=== PATIENT | female | born 1955 | race Caucasian/White ===

== ENCOUNTER 2021-10-03 09:01 | Inpatient (IN) | payer MEDICARE ==
[~2021-10-03] VITALS: Ht 152.4 cm; Wt 44.6 kg
[~2021-10-03 09:01] MED LIST: ASPIRIN 81M81 MG/TA2 PO; MULTI VITAMINS1 TAB PO; NORCO 325 MG-51 TAB PO; OYSCO 500500 M1; TOPROL XL 25MG25 MG PO
--- NOTE | 2021-10-03 11:30 | NUR ---
Pt arrived from [facility] via EM. Pt is very frail and quiet. Reports no pain complaints at this time. Pt is very sleepy, answers most of the questions I ask. Reports no home medications other than occasional tylenol for back pain. All questions answered and pt oriented to her room
[2021-10-03 12:23] VITALS: BP 110/54; PULSE 84; TEMP 98
[2021-10-03 12:59] LABS: BASO % 0.2 % (0.0-2.0); EOS % 0.2 % (0-4.0); GRAN # 5.3 K/mm3 (1.4-6.5); GRAN % 65.4 % (42.2-75.2); LYMPH # 2.2 K/mm3 (1.2-3.4); LYMPH % 26.9 % (20.0-51.0); MEAN CELL VOLUME 97 fl (80.0-100.0); MEAN CORPUSCULAR HEMOGLOBIN 35 pg (27.0-31.0); MEAN CORPUSCULAR HGB CONC 36 g/dl (33.0-37.0); MEAN PLATELET VOLUME 9.1 fl (7.4-10.4); MONO # 0.6 K/mm3 (0.1-0.6); MONO % 7.1 % (1.7-9.3); PLATELET COUNT 281 K/mm3 (130-400); RED BLOOD COUNT 3.16 M/mm3 (4.10-5.30); REDCELL DISTRIBUTION WIDTH-CV 12.8 % (11.5-14.5)
[2021-10-03 13:07] LABS: HEMATOCRIT 30.7 % (37.0-47.0)
[2021-10-03 13:10] LABS: CALCIUM 8.1 mg/dL (8.4-10.2); CREATININE, serum 0.55 mg/dL (0.57-1.11); POTASSIUM 3.7 mmol/L (3.5-4.5)
[2021-10-03 15:43] VITALS: BP 125/63; PULSE 92; TEMP 97.8
--- NOTE | 2021-10-03 17:11 | NUR ---
Pt has been resting most of the day. She does have a productive cough. No pain complaints. Notified Dr Hernandez of no diet order, received order for clear liquids. Cardiology has seen, GI in room now.
[2021-10-03 17:26] VITALS: BP 139/81; PULSE 95
[2021-10-03 19:54] VITALS: BP 122/63; PULSE 94; TEMP 98
--- NOTE | 2021-10-03 23:30 | NUR ---
ASSESSMENT COMPLETE. PT NAPPING IN BED. PT COMPLAINED OF BEING COLD. PT GIVEN WARM BLANKET. PT DENIES PAIN, PALPITATIONS, OR DIZZINESS. LATER IN THE SHIFT PT COMPLAINED OF SOB. PT'S O2 STATS AT 95%. PT FOUND TO HAVE SOME CRACKLES IN HER LOWER LOBES. PT GIVEN LASIX AND BREATHING TREATMENTS PER ORDERS. PT STATES SHE HAS NO OTHER NEEDS AT THIS TIME. CALL LIGHT WITHIN REACH.
[2021-10-04] VITALS (16 sets, daily range): BP systolic 104–178; BP diastolic 58–86; PULSE 63–121; TEMP 97.4–98.1
--- NOTE | 2021-10-04 07:00 | NUR ---
Report received from Carissa Purvis. Pt in bed restng with eyes closed, will continue to monitor.
[2021-10-04 07:15] LABS: ALBUMIN 2.6 gm/dL (3.4-4.8); CALCIUM 8.2 mg/dL (8.4-10.2); CREATININE, serum 0.52 mg/dL (0.57-1.11); MAGNESIUM 1.2 mg/dL (1.6-2.6); PHOSPHOROUS 3.5 mg/dL (2.3-4.7); POTASSIUM 3.6 mmol/L (3.5-4.5)
[2021-10-04 07:21] LABS: BASO # 0.1 K/mm3 (0.0-0.2); BASO % 0.7 % (0.0-2.0); EOS # 0.1 K/mm3 (0.0-0.7); EOS % 0.9 % (0.0-4.0); GRAN # 4.1 K/mm3 (1.4-6.5); GRAN % 61.3 % (42.2-75.2); HEMOGLOBIN 10.4 g/dl (12.5-16.0); MEAN CELL VOLUME 98 fl (80.0-100.0); MEAN CORPUSCULAR HEMOGLOBIN 36 pg (27-31); MEAN CORPUSCULAR HGB CONC 36 g/dl (33.0-37.0); MEAN PLATELET VOLUME 9.9 fl (7.4-10.4); MONO # 0.5 K/mm3 (0.1-0.6); RED BLOOD COUNT 2.93 M/mm3 (4.10-5.30); REDCELL DISTRIBUTION WIDTH-CV 12.6 % (11.5-14.5)
[2021-10-04 07:22] LABS: HEMATOCRIT 28.6 % (37.0-47.0); PLATELET COUNT 135 K/mm3 (130-400)
--- NOTE | 2021-10-04 08:30 | NUR ---
Assessment charted. Pt in bed resting, states she feels like can't breath, turned 02 up to 2L NC and sats are 96%, states she has heaviness on chest, able to get pt down for lexiscan this am. Laying on side and tripod breathing, very small and skinny, denies pain, IVF started to IV tin RFA. INT to LFA. Will ocntinue to monitor.
--- NOTE | 2021-10-04 11:34 | NUR ---
fat pressroom worker met with patient to discuss discharge plan. Patient reports that she lives at home with her Harjinder ([phone]) in [facility]. Patient reports that she is fully independent with his activities of daily living and does not utilize any DME to assist with mobility. Patient reports to not having oxygen established at home and does not use a nebulizer. PCP is Dr. Shah and she utilizes [facility] for medications with no cost difficulty. Patient reports that she does not havea DPOA-HC established at this time and verbalizes that she is not interested in creating one. Education provided to both the patient and her that legally decision making would fall to Harjinder and then go down the blood line. Patient and verbalize there understanding and is ok with this. Attended rounds with the physician team. Plan is to start the patient on breathing treatments, establish a glass carrier and do a ExOx to establish home oxygen. Went through treatment plan with the patient who verbalizes her understanding of the plan. Discharge plan: Home
[2021-10-04 11:51] LABS: ARTERIAL BLD GAS O2 SATURATION 96.2 % (92-100); ARTERIAL BLOOD GAS BASE EXCESS 4.3 (-2-2); ARTERIAL BLOOD GAS HCO3 27.9 meq/L (22-26); ARTERIAL BLOOD GAS PO2 77.2 mmHg (80-100); ARTERIAL BLOOD GAS pH 7.48 (7.35-7.45)
--- NOTE | 2021-10-04 12:48 | NUR ---
Upon entry in the room pts family member states she was short of breath because they went to the bathroom. Pt idd not use commode no urine captured but states she had liquid black stool in toilet. Will give report to Mayi who will resume care.
--- NOTE | 2021-10-04 15:06 | NUR ---
Initial visit; Patient thanked Glue Machine Operator for looking in on her and offering God's blessings and for Glue Machine Operator to keep her in her prayers.
--- NOTE | 2021-10-04 18:12 | NUR ---
Pt had not urinated this afternoon, offered to take patient to the bathroom several times but she declined stating she did not have to go. SENIOR GROUP MANAGER went in to bladder scan patient and patient urinated in her brief. Pt continues to have anxious spells where she feels SOB and is unable to calm herself down, PRN Xanax administered. Pt updated with the POC, verbalizes understanding. No needs at this time. Call light within reach.
--- NOTE | 2021-10-04 22:29 | NUR ---
patient lethargic, will not drink bowel prep for scheduled colonoscopy in am, call placed to Nneka Fish to notify. See new orders.
[2021-10-04 22:43] LABS: ARTERIAL BLD GAS O2 SATURATION 88.4 % (92-100); ARTERIAL BLD GAS TCO2 CT 26.8; ARTERIAL BLOOD GAS HCO3 25.6 meq/L (22-26); ARTERIAL BLOOD GAS PCO2 40.8 mmHg (35-45); ARTERIAL BLOOD GAS PO2 56.7 mmHg (80-100); ARTERIAL BLOOD GAS pH 7.42 (7.35-7.45)
[2021-10-05 00:42] VITALS: BP 114/55; PULSE 77; TEMP 98
[2021-10-05 04:08] VITALS: BP 108/57; PULSE 68; TEMP 97.6
--- NOTE | 2021-10-05 05:02 | NUR ---
Patient completed bowel prep at 1am, had 2 incontent bowel movements of watery brown stool, updated on plan of care, denies pain, lethargy noted, patient states she hasn't eaten in 4 days and is hungry, NPO status maintained, assisted with pericare and bed change. Colonoscopy scheduled today.
[2021-10-05 06:22] LABS: BASO % 0.1 % (0.0-2.0); GRAN # 5.5 K/mm3 (1.4-6.5); GRAN % 81.3 % (42.2-75.2); HEMOGLOBIN 10.5 g/dl (12.5-16.0); LYMPH # 0.9 K/mm3 (1.2-3.4); LYMPH % 13.4 % (20.0-51.0); MEAN CELL VOLUME 97 fl (80.0-100.0); MEAN CORPUSCULAR HEMOGLOBIN 35 pg (27-31); MEAN CORPUSCULAR HGB CONC 36 g/dl (33.0-37.0); MEAN PLATELET VOLUME 9.5 fl (7.4-10.4); MONO # 0.3 K/mm3 (0.1-0.6); MONO % 4.8 % (1.7-9.3); RED BLOOD COUNT 2.97 M/mm3 (4.10-5.30); REDCELL DISTRIBUTION WIDTH-CV 12.6 % (11.5-14.5)
[2021-10-05 06:30] LABS: HEMATOCRIT 28.9 % (37.0-47.0); PLATELET COUNT 292 K/mm3 (130-400)
[2021-10-05 06:39] LABS: ALBUMIN 2.6 gm/dL (3.4-4.8); BILIRUBIN,TOTAL 0.5 mg/dL (0.2-1.2); CALCIUM 8.8 mg/dL (8.4-10.2); CREATININE, serum 0.69 mg/dL (0.57-1.11); POTASSIUM 4.1 mmol/L (3.5-4.5); TOTAL PROTEIN 6.2 gm/dL (6.2-8.1)
[2021-10-05 07:47] VITALS: BP 116/60; PULSE 89; TEMP 97.5
[2021-10-05] MEDS ORDERED: PROTONIX 40MG T40 MG PO (11:18)
[2021-10-05] MEDS ORDERED: CARDIZEM CD 12120 MG PO (11:19)
[2021-10-05] MEDS ORDERED: MULTAQ400 MG PO (11:19)
[2021-10-05] MEDS ORDERED: PROAIR HFA0.09 MG/AC IH (11:19)
[2021-10-05] MEDS ORDERED: MEDROL 4MG DOSPA4 MG PO (11:19)
[2021-10-05 11:20] VITALS: BP 107/57; PULSE 75; TEMP 98.2
[2021-10-05] MEDS ORDERED: NICODERM C21 MG/PATC TD (11:21)
--- NOTE | 2021-10-05 14:17 | NUR ---
Spoke with the patient about going home on oxygen and seeing what company she would like to be established with. Patient verbalizes that she would like to be set up with [facility]. Order signed and faxed to [facility]. Attempted to contact the patient's ,however the phone number on file is not in working order.
[2021-10-05 15:06] VITALS: BP 144/77; PULSE 87; TEMP 97.6
[2021-10-05] MEDS ORDERED: ELIQUIS 5MG PO (15:29)
--- NOTE | 2021-10-05 16:08 | NUR ---
Unable to reach the patient's until he came up to the hospital post procedure. Education the that he would need to go down to [facility] to pick the patient's oxygen up and bring a tank up to the hospital for their ride home. Time at [facility] notified that the patient's was on his way there.
--- NOTE | 2021-10-05 17:00 | NUR ---
Discharge paperwork and instructions reviewed with patient and at this time. All questions answered at this time. Bilateral FA IV's dc'd catheter tips intact. Pt wheeled out of facility by a staff member at this time.
[2021-10-09] MEDS ORDERED: COUMADIN 22.5 MG/TAB PO (21:07)
== END 2021-10-05 17:00 | disposition home or self-care (01) | DRG 377 ==
LOC: MEDICAL 09:01
PROVIDERS: Internal Medicine Gastroenterology; Nurse Practitioner Family; Physician Assistant; ADMIT Internal Medicine
PROC: 0DB98ZX Excision of Duodenum, Via Natural or Artificial Opening Endoscopic, Diagnostic (ICD-10-PCS; 2021-10-04)
PROC: 0DB78ZX Excision of Stomach, Pylorus, Via Natural or Artificial Opening Endoscopic, Diagnostic (ICD-10-PCS; 2021-10-04)
PROC: 0DJD8ZZ Inspection of Lower Intestinal Tract, Via Natural or Artificial Opening Endoscopic (ICD-10-PCS; principal; 2021-10-05 14:30)
DX: K25.4 Chronic or unspecified gastric ulcer with hemorrhage (principal); I21.4 Non-ST elevation (NSTEMI) myocardial infarction; J96.01 Acute respiratory failure with hypoxia; E43 Unspecified severe protein-calorie malnutrition; D62 Acute posthemorrhagic anemia; E87.1 Hypo-osmolality and hyponatremia; J90 Pleural effusion, not elsewhere classified; J98.11 Atelectasis; D68.32 Hemorrhagic disorder due to extrinsic circulating anticoagulants; Z68.1 Body mass index [BMI] 19.9 or less, adult; K29.71 Gastritis, unspecified, with bleeding; K92.1 Melena; F17.210 Nicotine dependence, cigarettes, uncomplicated; I48.0 Paroxysmal atrial fibrillation; I25.10 Atherosclerotic heart disease of native coronary artery without angina pectoris; K29.80 Duodenitis without bleeding; J43.9 Emphysema, unspecified; T45.515A Adverse effect of anticoagulants, initial encounter; I34.0 Nonrheumatic mitral (valve) insufficiency; E83.42 Hypomagnesemia; K64.2 Third degree hemorrhoids; K44.9 Diaphragmatic hernia without obstruction or gangrene
CPT/HCPCS: 99223-AI; 99233-AI; 99239; A9500; C9113; J1940; J2405; J2704; J2765; J2785; J3475; J7030; J7512; Q9967

== ENCOUNTER 2021-10-22 16:10 | Emergency (ER) | payer MEDICARE ==
[~2021-10-22] VITALS: Ht 152.4 cm; Wt 38.2 kg
[~2021-10-22 16:10] MED LIST changes: +CARDIZEM CD 12120 MG PO; +COUMADIN 22.5 MG/TAB PO; +ELIQUIS 5MG PO; +LASIX 40MG TABL40 MG PO; +MEDROL 4MG DOSPA4 MG PO; +MULTAQ400 MG PO; +NICODERM C21 MG/PATC TD; +OMNICEF 300MG300 MG PO; +OXYGEN; +PREDNISONE20 MG PO; +PRINIVIL2.5 MG PO; +PROAIR HFA0.09 MG/AC IH; +PROTONIX 40MG T40 MG PO
[2021-10-22 16:15] VITALS: TEMP 98
[2021-10-22 17:02] LABS: BASO # 0.1 K/mm3 (0.0-0.2); BASO % 0.4 % (0.0-2.0); EOS # 0.2 K/mm3 (0.0-0.7); EOS % 1.6 % (0.0-4.0); GRAN # 11.7 K/mm3 (1.4-6.5); GRAN % 87.2 % (42.2-75.2); HEMOGLOBIN 11.2 g/dl (12.5-16.0); LYMPH # 0.8 K/mm3 (1.2-3.4); LYMPH % 6.1 % (20.0-51.0); MEAN CELL VOLUME 98 fl (80.0-100.0); MEAN CORPUSCULAR HEMOGLOBIN 35 pg (27-31); MEAN CORPUSCULAR HGB CONC 36 g/dl (33.0-37.0); MEAN PLATELET VOLUME 8.8 fl (7.4-10.4); MONO # 0.6 K/mm3 (0.1-0.6); MONO % 4.2 % (1.7-9.3); PLATELET COUNT 304 K/mm3 (130-400); RED BLOOD COUNT 3.16 M/mm3 (4.10-5.30); REDCELL DISTRIBUTION WIDTH-CV 13.2 % (11.5-14.5)
[2021-10-22 17:03] LABS: HEMATOCRIT 30.9 % (37.0-47.0)
[2021-10-22 17:20] LABS: BILIRUBIN,TOTAL 0.9 mg/dL (0.2-1.2); CALCIUM 8.1 mg/dL (8.4-10.2); CREATININE, serum 0.64 mg/dL (0.57-1.11); POTASSIUM 3.2 mmol/L (3.5-4.5); TOTAL PROTEIN 5.8 gm/dL (6.2-8.1)
[2021-10-22 17:39] LABS: TROPONIN-I 0.055 ng/mL (0.00-0.033)
[2021-10-22] MEDS ORDERED: PREDNISONE20 MG PO (17:54)
[2021-10-22 18:30] VITALS: BP 124/66; PULSE 92
== END 2021-10-22 18:40 | disposition home or self-care (01) ==
LOC: COL.ER 16:10
PROVIDERS: Emergency Medicine
DX: J44.1 Chronic obstructive pulmonary disease with (acute) exacerbation (principal); I48.91 Unspecified atrial fibrillation; I25.2 Old myocardial infarction; I50.9 Heart failure, unspecified; Z79.899 Other long term (current) drug therapy; Z79.01 Long term (current) use of anticoagulants; Z79.52 Long term (current) use of systemic steroids; Z99.81 Dependence on supplemental oxygen; Z20.822 Contact with and (suspected) exposure to COVID-19
CPT/HCPCS: J2930

== ENCOUNTER 2021-11-17 08:01 | Day surgery (SDC) | payer MEDICARE ==
[~2021-11-17] VITALS: Wt 37.7 kg
[2021-11-17] MEDS ORDERED: ZESTRIL2.5 MG PO (09:41)
[2021-11-17] MEDS ORDERED: LASIX 40MG TABL40 MG PO (09:41)
[2021-11-17] MEDS ORDERED: PROTONIX 40MG T40 MG PO (09:41)
[2021-11-17] MEDS ORDERED: CARDIZEM CD 12120 MG PO (09:42)
[2021-11-17] MEDS ORDERED: OXYGEN (09:43)
[2021-11-17] MEDS ORDERED: TYLENOL 325MG325 MG PO (09:43)
[2021-11-17] MEDS ORDERED: PROAIR HFA0.09 MG/AC IH (09:43)
[2021-11-17 10:22] VITALS: BP 121/91; PULSE 87; TEMP 97.4
[2021-11-17 10:44] VITALS: BP 131/71; PULSE 78
--- NOTE | 2021-11-17 11:30 | NUR ---
Report given to Yaniv Avelar.Pt transferred to room 351.
[2021-11-17 11:59] VITALS: BP 112/74; PULSE 68; TEMP 97.4
--- NOTE | 2021-11-17 12:38 | NUR ---
Patient admitted to room 351
[2021-11-17] MEDS ORDERED: BETAPACE 80MG80 MG PO (14:07)
[2021-11-17] MEDS ORDERED: CEPHALEXIN500 M1 PO (14:08)
--- NOTE | 2021-11-17 15:25 | NUR ---
Patient admitted to Room 351 from Express unit for Sotalol initiation. Patient currently in SR with a heart rate in the 60's. VSS. Patient A&O. Currently requiring 4L of O2 via nasal cannula. Denies any pain, discomfort, SOA, or further needs at this time. Medications and allergies reviewed. Admission paperwork completed. Call light in reach.
[2021-11-17 17:00] VITALS: BP 116/70; PULSE 71; TEMP 97.5
[2021-11-17 20:20] VITALS: BP 106/66; PULSE 83; TEMP 98.1
--- NOTE | 2021-11-17 22:35 | NUR ---
Patient assessed around 2034. Alert and oriented and able to make needs known. Reported minimal pain to loop recorder site to left chest. Given PRN APAP as requested. Dressing to site CDI. Voices no questions, needs, or concerns at this time. In bed with call light within reach. On oxygen at 2 L/min via NC.
[2021-11-18] VITALS (7 sets, daily range): BP systolic 81–117; BP diastolic 42–65; PULSE 72–86; TEMP 97.3–98.2
--- NOTE | 2021-11-18 05:16 | NUR ---
Patient received PRN APAP once this shift at HS as requested. Has voiced no further questions, needs, or concerns at this time. In bed with call light within reach.
[2021-11-18 07:31] LABS: INR 1.1 (0.8-3.0)
[2021-11-18 07:33] LABS: CALCIUM 8.7 mg/dL (8.4-10.2); CREATININE, serum 0.58 mg/dL (0.57-1.11); MAGNESIUM 1.5 mg/dL (1.6-2.6); POTASSIUM 3.7 mmol/L (3.5-4.5)
[2021-11-18 07:36] LABS: BASO % 0.4 % (0.0-2.0); EOS # 0.1 K/mm3 (0.0-0.7); EOS % 1.1 % (0.0-4.0); GRAN % 53.1 % (42.2-75.2); HEMOGLOBIN 11.4 g/dl (12.5-16.0); LYMPH # 2.6 K/mm3 (1.2-3.4); LYMPH % 34.6 % (20.0-51.0); MEAN CELL VOLUME 103 fl (80.0-100.0); MEAN CORPUSCULAR HEMOGLOBIN 34 pg (27-31); MEAN CORPUSCULAR HGB CONC 34 g/dl (33.0-37.0); MEAN PLATELET VOLUME 9.5 fl (7.4-10.4); MONO # 0.8 K/mm3 (0.1-0.6); MONO % 10.5 % (1.7-9.3); PLATELET COUNT 338 K/mm3 (130-400); RED BLOOD COUNT 3.31 M/mm3 (4.10-5.30); REDCELL DISTRIBUTION WIDTH-CV 13.2 % (11.5-14.5)
--- NOTE | 2021-11-18 09:49 | NUR ---
Scheduled medications given. Shift assessment performed. Patient currently requiring 2L of O2 via nasal cannula. C/O mild aching at her loop recorder incision site. Denies that need for intervention at this time. Information regarding the flu vaccine given. All questions answered. Flu vaccine given in left deltoid. Patient refused Keflex due to reported diarrhea after 1st dose last pm. Patient denies any further pain, discomfort, SOA. or further needs at this time. Call light in reach. , Rohit, at the bedside.
--- NOTE | 2021-11-18 13:02 | NUR ---
stopped by but nothing needed at this time.
--- NOTE | 2021-11-18 17:48 | NUR ---
Patient has had on ok day. Currently requiring 2L of O2 via nasal cannula. VSS. Patient A&O. Patient denies any pain, discomfort. SOA, or further needs at this time. Call light in reach. Fall percautions in place.
--- NOTE | 2021-11-18 20:52 | NUR ---
Patient assessed around 1999. Alert and oriented x 4, and able to make needs known. Denies pain and discomfort. Peripheral INT to left forearm. Denies SOB and dypsnea at rest, but does get SOB with exertion. On oxygen at 2 L/min via NC. LS CTA in upper lobes, diminished in lower. Heart murmur present. Dressing to loop recorder site on left chest CDI. Telemetry in place. Capillary refill less than 3 seconds. Non-tenting skin turgor. BSAx4. Abdomen soft and non-tender. No edema. Voices no questions, needs, or concerns at this time. In bed with call light within reach.
[2021-11-19] VITALS (8 sets, daily range): BP systolic 94–116; BP diastolic 49–92; PULSE 64–81; TEMP 97.5–98.1
--- NOTE | 2021-11-19 05:51 | NUR ---
Patient has denied pain and discomfort this shift. On oxygen at 2 L/min via NC. Voices no questions, needs, or concerns at this time. Dressing to loop recorder on left chest CDI. In bed with call light within reach.
[2021-11-19 06:45] LABS: BASO % 0.4 % (0.0-2.0); EOS # 0.1 K/mm3 (0.0-0.7); EOS % 1.2 % (0.0-4.0); GRAN # 4.2 K/mm3 (1.4-6.5); GRAN % 51.8 % (42.2-75.2); HEMOGLOBIN 10.9 g/dl (12.5-16.0); LYMPH # 2.7 K/mm3 (1.2-3.4); LYMPH % 33.1 % (20.0-51.0); MEAN CELL VOLUME 99 fl (80.0-100.0); MEAN CORPUSCULAR HEMOGLOBIN 35 pg (27-31); MEAN CORPUSCULAR HGB CONC 35 g/dl (33.0-37.0); MEAN PLATELET VOLUME 9.5 fl (7.4-10.4); MONO # 1.1 K/mm3 (0.1-0.6); MONO % 13.1 % (1.7-9.3); PLATELET COUNT 308 K/mm3 (130-400); RED BLOOD COUNT 3.16 M/mm3 (4.10-5.30); REDCELL DISTRIBUTION WIDTH-CV 13.1 % (11.5-14.5)
[2021-11-19 06:51] LABS: INR 1.1 (0.8-3.0); PROTHROMBIN TIME 12.2 SECONDS (9.7-12.8)
[2021-11-19 06:54] LABS: HEMATOCRIT 31.4 % (37.0-47.0)
[2021-11-19 07:01] LABS: CALCIUM 8.3 mg/dL (8.4-10.2); CREATININE, serum 0.6 mg/dL (0.57-1.11); MAGNESIUM 1.5 mg/dL (1.6-2.6); POTASSIUM 3.5 mmol/L (3.5-4.5)
--- NOTE | 2021-11-19 08:21 | NUR ---
PT ALERT AND ORIENTED. ASSESSMENT COMPLETE. PACER INSERTION SITE CLEAN, DRY, INTACT. PT DENIES PAIN. PT ABLE TO AMBULATE INDEPENDENT IN ROOM, BREAKFAST HAS BEEN ORDERED. PT HAS CLEAR LUNGS TO AUSCULTATION. S1,S2 SOUNDS HEARD. PT REFUSING KEFLEX D/T GI DISCOMFORT. CALL LIGHT WITHIN REACH.
--- NOTE | 2021-11-19 17:23 | NUR ---
PT CONTINUES ON PLAN OF CARE. PT DENIED PAIN THIS SHIFT. BLOOD PRESSURES SOFT THIS SHIFT, PT DENIES DIZZINESS, SOA. PT VISITED THROUGHOUT THE DAY. PT INDEPENDENT IN ROOM, NO SIGNIFICANT CHANGES NOTED THIS SHIFT.
--- NOTE | 2021-11-19 18:47 | NUR ---
PT EXPRESSING CONCERNS WITH DISCHARGING TONIGHT. NOTIFIED DR. COOPER, RECEIVED VERBAL OKAY TO DISCARD 1999 EKG AND RESUME 2100 SOTALOL ADMINISTRATION. ATTEMPT TO CALL PHARMACY HANDHOLE MACHINE OPERATOR, PHARMACIST EXPLAINED UNABLE TO ACCESS PT CHART. UPDATED MANAGER STATISTICS TO GIVE SOTALOL AT 2100.
--- NOTE | 2021-11-20 05:43 | NUR ---
PT DENIES PAIN,N,V,D, CHEST PAIN, PALPITATIONS, SOA. ALL NEEDS MET THIS SHIFT. CALL LIGHT WITHIN REACH. EKG PENDING THIS AM.
[2021-11-20 07:56] VITALS: BP 120/61; PULSE 70; TEMP 97.9
[2021-11-20 09:56] LABS: BASO % 0.4 % (0.0-2.0); EOS # 0.1 K/mm3 (0.0-0.7); EOS % 0.8 % (0.0-4.0); GRAN # 4.7 K/mm3 (1.4-6.5); HEMOGLOBIN 11.2 g/dl (12.5-16.0); LYMPH # 2.5 K/mm3 (1.2-3.4); LYMPH % 30.1 % (20.0-51.0); MEAN CELL VOLUME 99 fl (80.0-100.0); MEAN CORPUSCULAR HEMOGLOBIN 34 pg (27-31); MEAN CORPUSCULAR HGB CONC 35 g/dl (33.0-37.0); MEAN PLATELET VOLUME 9.1 fl (7.4-10.4); MONO # 0.9 K/mm3 (0.1-0.6); MONO % 11.3 % (1.7-9.3); PLATELET COUNT 305 K/mm3 (130-400); RED BLOOD COUNT 3.29 M/mm3 (4.10-5.30)
[2021-11-20 09:57] LABS: HEMATOCRIT 32.4 % (37.0-47.0)
[2021-11-20 10:00] LABS: INR 1.1 (0.8-3.0); PROTHROMBIN TIME 12.4 SECONDS (9.7-12.8)
[2021-11-20 10:09] LABS: CALCIUM 8.3 mg/dL (8.4-10.2); CREATININE, serum 0.62 mg/dL (0.57-1.11); MAGNESIUM 1.6 mg/dL (1.6-2.6); POTASSIUM 3.8 mmol/L (3.5-4.5)
[2021-11-20] MEDS ORDERED: K-DUR20 MEQ PO (10:54)
[2021-11-20 11:52] VITALS: BP 118/50; PULSE 72; TEMP 98.1
--- NOTE | 2021-11-20 12:08 | NUR ---
Scheduled medications given. Shift assessment performed. Patient denies any pain, discomfort, SOA, or further needs at this time. Patient currently requiring 2L of O2 via nasal cannula. at the bedside. Will be going home after magnesium replaced. Call light in reach.
--- NOTE | 2021-11-20 14:30 | NUR ---
Patient deemed fit for discharge. IV DC'd, catheter intact, no signs of phlebitis. Discharge education/instructions given. All questions answered. Patient escorted from building via wheelchair escorted by [facility] Staff. transporting home. VSS. Patient A&O.
--- NOTE | 2021-11-20 15:37 | NUR ---
Sandblast Or Shotblast Equipment Tender received a phone call from [facility] who advised they have patient for services. SW faxed clinical updates. PAT was unable to see patient prior to her discharge today.
== END 2021-11-20 14:30 | disposition home or self-care (01) ==
LOC: COL.CAR 08:01 → MEDICAL 11:46 → COL.CAR 11-19 11:46 → MEDICAL 11-19 11:46 → COL.CAR 11-20 14:30 → MEDICAL 11-20 14:30
DX: I48.0 Paroxysmal atrial fibrillation (principal); Z51.81 Encounter for therapeutic drug level monitoring; E83.119 Hemochromatosis, unspecified; K92.1 Melena; J43.9 Emphysema, unspecified; K64.2 Third degree hemorrhoids; D64.9 Anemia, unspecified; I10 Essential (primary) hypertension; I25.2 Old myocardial infarction; K21.9 Gastro-esophageal reflux disease without esophagitis; K44.9 Diaphragmatic hernia without obstruction or gangrene; Z87.891 Personal history of nicotine dependence; Z99.81 Dependence on supplemental oxygen; Z23 Encounter for immunization
CPT/HCPCS: OP; C1764; G0008; G0378; G0379; J3475

== ENCOUNTER 2022-04-09 15:39 | Inpatient (IN) | payer MEDICARE ==
[~2022-04-09] VITALS: Ht 149.9 cm; Wt 40.0 kg
[~2022-04-09 15:39] MED LIST changes: +BETAPACE 80MG80 MG PO; +CEPHALEXIN500 M1 PO; +K-DUR20 MEQ PO; +TYLENOL 325MG325 MG PO; +ZESTRIL2.5 MG PO
[2022-04-09 16:48] LABS: BASO % 0.3 % (0.0-2.0); EOS # 0.1 K/mm3 (0.0-0.7); EOS % 0.8 % (0.0-4.0); GRAN # 5.2 K/mm3 (1.4-6.5); GRAN % 54.5 % (42.2-75.2); HEMOGLOBIN 11.5 g/dl (12.5-16.0); LYMPH # 3.5 K/mm3 (1.2-3.4); LYMPH % 36.8 % (20.0-51.0); MEAN CELL VOLUME 92 fl (80.0-100.0); MEAN CORPUSCULAR HEMOGLOBIN 33 pg (27-31); MEAN CORPUSCULAR HGB CONC 35 g/dl (33.0-37.0); MEAN PLATELET VOLUME 9.2 fl (7.4-10.4); MONO # 0.7 K/mm3 (0.1-0.6); MONO % 7.4 % (1.7-9.3); PLATELET COUNT 324 K/mm3 (130-400); RED BLOOD COUNT 3.54 M/mm3 (4.10-5.30); REDCELL DISTRIBUTION WIDTH-CV 13.1 % (11.5-14.5)
[2022-04-09 16:50] LABS: HEMATOCRIT 32.6 % (37.0-47.0)
[2022-04-09 16:53] LABS: INR 1.1 (0.8-3.0); PROTHROMBIN TIME 12.7 SECONDS (9.7-12.8)
[2022-04-09 16:56] LABS: PARTIAL THROMBOPLASTIN TIME 32.3 SECONDS (26.0-37.0)
[2022-04-09 17:08] LABS: ALBUMIN 2.9 gm/dL (3.4-4.8); BILIRUBIN,TOTAL 0.7 mg/dL (0.2-1.2); CREATININE, serum 0.6 mg/dL (0.57-1.11); POTASSIUM 4.4 mmol/L (3.5-4.5); TOTAL PROTEIN 7.3 gm/dL (6.2-8.1)
[2022-04-09 17:14] LABS: TROPONIN-I 0.031 ng/mL (0.00-0.033)
[2022-04-09 18:34] LABS: COLLECTION METHOD CLEAN CATCH
[2022-04-09 18:40] LABS: PH 8 (5-8); SQUAMOUS EPITHELIAL 0-2 /hpf (0-10); URINE APPEARANCE Clear (CLEAR/HAZY); URINE BACTERIA None Seen /hpf (NONE SEEN); URINE BILIRUBIN Negative (NEGATIVE); URINE BLOOD Negative (NEGATIVE); URINE COLOR Yellow (YELLOW); URINE GLUCOSE Negative (NEGATIVE); URINE KETONE Negative (NEGATIVE); URINE LEUKOCYTE ESTERASE Negative (NEGATIVE); URINE NITRATE Negative (NEGATIVE); URINE PROTEIN(semi-quant) Negative (NEGATIVE); URINE UROBILINOGEN Negative (NEGATIVE)
[2022-04-09 19:30] VITALS: BP 155/92; PULSE 75
--- NOTE | 2022-04-09 19:44 | NUR ---
TX GIVEN VIA MOUTHPIECE, TOLERATED WELL.
--- NOTE | 2022-04-09 20:15 | NUR ---
Admitted to medical floor from ER with SOB/pleural effusions,, VSS, on 4 L/nc with sats 98-100%, pt states she feels SOB but is overall feeling better than earlier in ER, respiratory therapy informed of order for IS, they will bring one up for her,, tele on-SR, lung sounds decreased throughout, has some foot/ankle edema, Steady on feet- informed patient of hat in toilet to measure urine since she is getting IV lasix- pt states understanding,, Echo in the AM
[2022-04-09 23:50] VITALS: BP 133/79; PULSE 70; TEMP 97.6
[2022-04-10] VITALS (12 sets, daily range): BP systolic 94–132; BP diastolic 65–84; PULSE 68–74; TEMP 97.5–98.3
--- NOTE | 2022-04-10 04:59 | NUR ---
Quiet night- no requests, o2 sats 97% on 4L/nc, states did sleep fair
[2022-04-10 07:25] LABS: BASO % 0.2 % (0.0-2.0); GRAN % 62.8 % (42.2-75.2); HEMOGLOBIN 11.7 g/dl (12.5-16.0); LYMPH # 2.2 K/mm3 (1.2-3.4); LYMPH % 34.6 % (20.0-51.0); MEAN CELL VOLUME 90 fl (80.0-100.0); MEAN CORPUSCULAR HEMOGLOBIN 32 pg (27-31); MEAN CORPUSCULAR HGB CONC 36 g/dl (33.0-37.0); MONO # 0.1 K/mm3 (0.1-0.6); MONO % 2.1 % (1.7-9.3); PLATELET COUNT 315 K/mm3 (130-400); RED BLOOD COUNT 3.64 M/mm3 (4.10-5.30); REDCELL DISTRIBUTION WIDTH-CV 13.1 % (11.5-14.5)
[2022-04-10 07:35] LABS: HEMATOCRIT 32.9 % (37.0-47.0)
[2022-04-10 07:48] LABS: CALCIUM 8.9 mg/dL (8.4-10.2); CREATININE, serum 0.61 mg/dL (0.57-1.11); MAGNESIUM 1.3 mg/dL (1.6-2.6); POTASSIUM 4.1 mmol/L (3.5-4.5)
--- NOTE | 2022-04-10 09:02 | NUR ---
Charrer met with patient to discuss discharge planning. Patient lives in [place] with her , Harjinder (ph#[phone]) [address] Shah for primary care. Patient obtains medications from [facility] and sometimes has difficulties affording her medications. Patient has Medicare and no secondary. Patient states she has not applied for Medicaid as she and her make too much money. Patient uses home oxygen from [place] [facility] and no other DME. Patient reports independence with ADLS, however does get some assistance from her with bathing. Patient has PT/OT ordered. Patient advised she has had [facility] in the past out of [place], however does not feel that she needs it at this time. Patient does not have Advance Directives and is not interested in establishing DPOA-HC at this time. Patient plans to return home at time of discharge. Discharge Plan: Home, pending PT/OT recs
--- NOTE | 2022-04-10 09:54 | NUR ---
ASSIST DR RABAGO WITH RIGHT SIDED THORACENTESIS. 1ST KIT WAS NOT STOCKED WITH CATHETER NEEDED, THEREFORE 2ND KIT HAD TO BE OPENED AND USED. 1% LIDOCAINE USED FOR NUBMING. PATIENT TOLERATED PROCEDURE WELL. VITALS STABLE AFTER PROCEDURE. 1100ML FLUID REMOVED. PATIENT REMAINS ON 3L O2 VIA NC. MILD COUGH, TOLERABLE. DENIES CHEST PAIN AT THIS TIME. WILL CONT TO MONITOR. POSSIBLE LEFT SIDE THORACENTESIS LATER TODAY OR TOMORROW.
--- NOTE | 2022-04-10 12:14 | NUR ---
Ambreen: No adventism preference Situation: Aviation Operations Specialist stopped by room on rounds Background: Pt was resting and content Assessment: Pt appreciated visit Recommendation: Aviation Operations Specialist will follow up as needed
[2022-04-11 00:46] VITALS: BP 103/61; PULSE 65; TEMP 97.5
--- NOTE | 2022-04-11 01:49 | NUR ---
PATIENT SITTING PU ON SIDE OF BED AROUND 2129 WHEN PROVIDING MEDICATION STATED SHE FEELS ALOT BETTER AND READY TO GO HOME TOMORROW. NO S/S OF SOB OR DISTRESS. CONTINUES ON 02@2L VIA NC. THORACENTESIS SITES INTACT. CONTINUES ON LASIX FOR FLUID RETENTION WILL CONTINUE TO MONITOR FOR ANY CHANGES.
--- NOTE | 2022-04-11 04:48 | NUR ---
PATIENT SLEEPT THROUGHOU THE NIGHT NO C/O OF SOA CONTNUES ON BASELINE 2L VIA NC. NO PAIN NOTED WILL CONTINUE TO MONITOR.
[2022-04-11 05:07] VITALS: BP 105/65; PULSE 66; TEMP 98
--- NOTE | 2022-04-11 06:45 | NUR ---
Report received, assumed care for day shift.
[2022-04-11 08:08] VITALS: BP 111/58; PULSE 70; TEMP 97.8
--- NOTE | 2022-04-11 09:31 | NUR ---
PT is recommending home health. PAT met with the patient to discuss their recommendation. The patient is open to home health and states that her told her that he thinks she would benefit from a home health nurse as well. The patient would like to use [facility] out of [place]. PAT contacted and faxed a referral to Pop at [facility]. Pop reports that they are able to accept the patient. PAT attempted to contact the patient's , Harjinder, to update. The patient answered the phone number on file. The patient states that her does not have a cell or home phone, but that he should be up to the hospital later today. *Discharge plan: home with and home health*
[2022-04-11 11:31] VITALS: BP 105/60; PULSE 76; TEMP 97.8
[2022-04-11] MEDS ORDERED: PREDNISONE20 MG PO (12:01)
[2022-04-11] MEDS ORDERED: Monodox PO (12:01)
[2022-04-11] MEDS ORDERED: BETAPACE 80MG80 MG PO (12:12)
[2022-04-11 13:02] LABS: CALCIUM 8.5 mg/dL (8.4-10.2); CREATININE, serum 0.7 mg/dL (0.57-1.11); MAGNESIUM 1.3 mg/dL (1.6-2.6); POTASSIUM 3.4 mmol/L (3.5-4.5)
--- NOTE | 2022-04-11 13:20 | NUR ---
Critical chloride called to IRASEMA Clayton
[2022-04-11 15:18] VITALS: BP 94/73; PULSE 70; TEMP 97.8
--- NOTE | 2022-04-11 19:07 | NUR ---
TX GIVEN VIA MOUTHPIECE, TOLERATED WELL. PT ON 1L O2 NC BEFORE AND AFTER TX.
[2022-04-11 20:39] VITALS: BP 117/71; PULSE 69; TEMP 97.6
[2022-04-12 00:39] VITALS: BP 119/66; PULSE 64; TEMP 97.6
--- NOTE | 2022-04-12 02:45 | NUR ---
ASSESSMENT COMPLETE FOR THIS SHIFT. PT SITTING ON THE SIDE OF HER BED PREPARING TO EAT DINNER. PT DENIED GENERAL PAIN, CHEST PAIN, PALPITATIONS, N,V,D, SOB OR DIZZINESS. PT'S HAD A PRETTY UNEVENTFUL NIGHT THUS FAR. PT EXPRESSED NO OTHER NEEDS AT THIS TIME. CALL LIGHT WITHIN REACH.
[2022-04-12 04:44] VITALS: BP 115/68; PULSE 65; TEMP 97.8
[2022-04-12 06:41] LABS: BASO % 0.1 % (0.0-2.0); GRAN # 10.7 K/mm3 (1.4-6.5); GRAN % 78.9 % (42.2-75.2); HEMOGLOBIN 12.5 g/dl (12.5-16.0); LYMPH # 2.3 K/mm3 (1.2-3.4); LYMPH % 17.2 % (20.0-51.0); MEAN CELL VOLUME 91 fl (80.0-100.0); MEAN CORPUSCULAR HEMOGLOBIN 33 pg (27-31); MEAN CORPUSCULAR HGB CONC 36 g/dl (33.0-37.0); MEAN PLATELET VOLUME 9.9 fl (7.4-10.4); MONO # 0.5 K/mm3 (0.1-0.6); MONO % 3.4 % (1.7-9.3); PLATELET COUNT 338 K/mm3 (130-400); RED BLOOD COUNT 3.85 M/mm3 (4.10-5.30); REDCELL DISTRIBUTION WIDTH-CV 13.4 % (11.5-14.5)
[2022-04-12 07:00] VITALS: BP 124/73; PULSE 64; TEMP 96.8
[2022-04-12 07:05] LABS: ALBUMIN 2.6 gm/dL (3.4-4.8); BILIRUBIN,TOTAL 0.5 mg/dL (0.2-1.2); CALCIUM 8.5 mg/dL (8.4-10.2); CREATININE, serum 0.66 mg/dL (0.57-1.11); MAGNESIUM 2.1 mg/dL (1.6-2.6); TOTAL PROTEIN 6.9 gm/dL (6.2-8.1)
[2022-04-12] MEDS ORDERED: ZESTRIL2.5 MG PO (09:05)
--- NOTE | 2022-04-12 09:52 | NUR ---
The patient is to discharge back home with her today, 04/12, with home health services for retirement/PT/OT from [facility] out of [place]. PAT notified and faxed orders to Lu at [facility]. PAT met with the patient and her and presented and read the IM form outloud to her. The patient verbalized understanding and of agreement to discharge today. She signed the form and PAT provided her with a copy. No additional needs at this time.
--- NOTE | 2022-04-12 11:15 | NUR ---
PATIENT AND GIVEN ALL DISCHARGE INSTRUCTIONS AND EDUCATION, EVERYTHING REVIEWED. SHE LEFT IN STABLE CONDITION WITH ALL BELONGINGS AND DISCHARGE INSTRUCTIONS.
== END 2022-04-12 10:00 | disposition home health service (06) | DRG 291 ==
LOC: COL.ER 15:39 → MEDICAL 17:39
PROVIDERS: Emergency Medicine; Family Medicine; Physician Assistant; ADMIT Internal Medicine
PROC: 0W993ZZ Drainage of Right Pleural Cavity, Percutaneous Approach (ICD-10-PCS; principal; 2022-04-10)
PROC: 0W9B3ZZ Drainage of Left Pleural Cavity, Percutaneous Approach (ICD-10-PCS; 2022-04-10)
DX: I11.0 Hypertensive heart disease with heart failure (principal); J96.21 Acute and chronic respiratory failure with hypoxia; I50.33 Acute on chronic diastolic (congestive) heart failure; E43 Unspecified severe protein-calorie malnutrition; E87.1 Hypo-osmolality and hyponatremia; J91.8 Pleural effusion in other conditions classified elsewhere; E87.3 Alkalosis; Z68.1 Body mass index [BMI] 19.9 or less, adult; J43.9 Emphysema, unspecified; F17.210 Nicotine dependence, cigarettes, uncomplicated; Z20.822 Contact with and (suspected) exposure to COVID-19; I48.0 Paroxysmal atrial fibrillation; T50.2X5A Adverse effect of carbonic-anhydrase inhibitors, benzothiadiazides and other diuretics, initial encounter; Y92.238 Other place in hospital as the place of occurrence of the external cause; D64.9 Anemia, unspecified; E83.42 Hypomagnesemia; Z72.89 Other problems related to lifestyle; Z99.81 Dependence on supplemental oxygen; I25.2 Old myocardial infarction; Z90.710 Acquired absence of both cervix and uterus; Z87.19 Personal history of other diseases of the digestive system; Z88.5 Allergy status to narcotic agent; Z88.8 Allergy status to other drugs, medicaments and biological substances; Z23 Encounter for immunization
CPT/HCPCS: 99223-AI; 99233-AI; 99239; A9284; J1940; J3475; J7512

== ENCOUNTER 2022-05-29 07:23 | Outpatient (CLI) | payer MEDICARE ==
[~2022-05-29] VITALS: Ht 149.9 cm; Wt 38.6 kg
[~2022-05-29 07:23] MED LIST changes: +Monodox PO
[2022-05-29 08:13] VITALS: BP 109/56; PULSE 64; TEMP 97.4
[2022-05-29] MEDS ORDERED: BENTYL 10MG10 MG/CAP PO (08:21)
--- NOTE | 2022-05-29 08:24 | NUR ---
Pt taken via cart to ENDO procedure room for scheduled thoracentesis.
[2022-05-29] MEDS ORDERED: PROAIR HFA0.09 MG/AC IH (08:25)
[2022-05-29 09:05] VITALS: BP 116/67; PULSE 71; TEMP 97.5
[2022-05-29 09:15] VITALS: BP 103/67; PULSE 72
--- NOTE | 2022-05-29 10:02 | NUR ---
Pt had thoracentesis with Dr Long. Pt tolerated well. VSS-documented. Pt did not receive sedation. Dr Long viewed post procedure CXR and okay for pt to dc. Discharge teaching completed, pt and pts spouse verbalized understanding. Pt dressed out of gown into personal clothing. Taken via wheelchair to private vehicle for dc home with spouse driving. Pt to return 05/30 for thoracentesis on the left side. Pt did not have any new c/o pain, SOA. Left on 2L via NC via personal portable 02 tank.
[2022-05-29 10:51] LABS: PLEURAL FLUID RBC 0 /mm3 (0-0); PLEURAL FLUID WBC 640 /mm3
[2022-05-29 10:56] LABS: PLEURAL FLUID APPEARANCE CLEAR; PLEURAL FLUID COLOR YELLOW
[2022-05-30 00:23] LABS: BODY FLUID PH (AMS) 8 (())
== END 2022-05-29 10:02 | disposition home or self-care (01) ==
LOC: SDCO 07:23
PROVIDERS: Internal Medicine Pulmonary Disease
DX: J90 Pleural effusion, not elsewhere classified (principal); F17.210 Nicotine dependence, cigarettes, uncomplicated; J44.9 Chronic obstructive pulmonary disease, unspecified
CPT/HCPCS: 19804

== ENCOUNTER 2022-05-30 07:27 | Outpatient (CLI) | payer MEDICARE ==
[~2022-05-30] VITALS: Ht 149.9 cm; Wt 38.6 kg
[~2022-05-30 07:27] MED LIST changes: +BENTYL 10MG10 MG/CAP PO
[2022-05-30 07:58] VITALS: BP 89/60; PULSE 68; TEMP 97.7
[2022-05-30 09:22] VITALS: BP 107/66; PULSE 68; TEMP 98.3
[2022-05-30 09:35] VITALS: BP 105/61; PULSE 67
[2022-05-30 09:50] VITALS: BP 101/62; PULSE 71
[2022-05-30 09:51] VITALS: BP 105/70; PULSE 80
[2022-05-30 10:06] LABS: PLEURAL FLUID RBC 0 /mm3 (0-0); PLEURAL FLUID WBC 661 /mm3
[2022-05-30 10:14] LABS: PLEURAL FLUID APPEARANCE CLEAR; PLEURAL FLUID COLOR YELLOW
--- NOTE | 2022-05-30 10:50 | NUR ---
Pt back today to have 2nd thoracentesis with Dr Long. Tolerated well and VSS-see flowsheet. Bandaid over aspiration site intact. CXR completed and pneomothorax noted on dictation from radiologist. Pt dressed and left via wheelchair with spouse to drive home.
[2022-05-31 00:24] LABS: BODY FLUID PH (AMS) 8 (())
== END 2022-05-30 10:50 | disposition home or self-care (01) ==
LOC: SDCO 07:27
PROVIDERS: Internal Medicine Pulmonary Disease
DX: J90 Pleural effusion, not elsewhere classified (principal); Z87.891 Personal history of nicotine dependence; J44.9 Chronic obstructive pulmonary disease, unspecified
CPT/HCPCS: 19804

== ENCOUNTER 2022-07-03 16:57 | Emergency (ER) | payer MEDICARE ==
[~2022-07-03] VITALS: Ht 149.9 cm; Wt 38.2 kg
[2022-07-03 17:10] VITALS: TEMP 98.3
[2022-07-03 19:41] VITALS: BP 102/64; PULSE 97
== END 2022-07-03 19:41 | disposition home or self-care (01) ==
LOC: COL.ER 16:57
DX: J90 Pleural effusion, not elsewhere classified (principal); J98.19 Other pulmonary collapse; Z99.81 Dependence on supplemental oxygen; Z98.890 Other specified postprocedural states

== ENCOUNTER → 2022-07-03 | Outpatient (CLI) | payer MEDICARE ==
[~2022-07-03] VITALS: Ht 149.9 cm; Wt 38.0 kg
[~2022-07-03] MED LIST changes: +SPIRIVA RE2.5 MCG/Ac IH
[2022-07-03 08:45] VITALS: BP 120/78; PULSE 80; TEMP 97.5
[2022-07-03 10:20] VITALS: BP 122/70; PULSE 70
[2022-07-04 00:29] LABS: BODY FLUID PH (AMS) 8 (())
== END ==
LOC: COL.RAD 08:22
PROVIDERS: Internal Medicine Pulmonary Disease
DX: J90 Pleural effusion, not elsewhere classified (principal)
CPT/HCPCS: 19804

== ENCOUNTER 2022-08-03 08:07 | Outpatient (CLI) | payer MEDICARE ==
[~2022-08-03] VITALS: Ht 149.9 cm; Wt 40.6 kg
[2022-08-03] MEDS ORDERED: BETAPACE 120MG120 MG PO (09:00)
[2022-08-03 09:16] VITALS: BP 99/66; PULSE 96; TEMP 97.4
--- NOTE | 2022-08-03 09:16 | NUR ---
0830 - O2 continues at 3 L via NC.
--- NOTE | 2022-08-03 09:16 | NUR ---
0830 - O2 continues at 3 L via NC.
[2022-08-03 09:37] VITALS: BP 99/40; PULSE 68
[2022-08-03 09:52] VITALS: BP 96/44; PULSE 72; TEMP 96.9
[2022-08-03 10:07] VITALS: BP 112/62; PULSE 85
--- NOTE | 2022-08-03 10:17 | NUR ---
0937 - Procedure ends; PT settled by Wilver MCARE. 0952 - Verbal report obtained. PT A&Ox3; denies pain/nausea and vitals continue to be montiored. PT upright at bedside. Snack and drink provided per PT request. Call costa remains within reach. Side rails x1 and non-slip socks are on. Warm blankets provided and Rohit remains present. O2 continues at 3 L via NC; stats remain above 95%. 0973 - DR Long contacted regarding PT flu vaccine. New orders recieved. RN contacted Pharmacy. 1007 - Vitals obtained. PT has finished snack and drink; continues to deny nausea. Call costa remains within reach if needed. Warm blankets applied to hand w/ S02, remains above 95% on 2 L NC.
--- NOTE | 2022-08-03 10:17 | NUR ---
0937 - Procedure ends; PT settled by Wilver MCRAE. 0952 - Verbal report obtained. PT A&Ox3; denies pain/nausea and vitals continue to be montiored. PT upright at bedside. Snack and drink provided per PT request. Call costa remains within reach. Side rails x1 and non-slip socks are on. Warm blankets provided and Rohit remains present. O2 continues at 3 L via NC; stats remain above 95%. 0905 - DR Long contacted regarding PT flu vaccine. New orders recieved. RN contacted Pharmacy. 1007 - Vitals obtained. PT has finished snack and drink; continues to deny nausea. Call costa remains within reach if needed. Warm blankets applied to hand w/ S02, remains above 95% on 2 L NC.
--- NOTE | 2022-08-03 11:05 | NUR ---
1100 - IM flu vaccine administered per protocol; bandaid applied to site. PT denies pain at site. Call costa within reach. 1105 - Radiology contacted for post-procedure CX.
--- NOTE | 2022-08-03 11:32 | NUR ---
1130 - PT has changed into her personal clothes w/ assistance from . DC instructions and educational material reviewed w/ PT who verbalized understanding and signed the related paperwork. Questions answered to PT satisfaction. PT assisted into wheelchair by . Awaiting escort to PT entrence.
--- NOTE | 2022-08-03 11:47 | NUR ---
1140 - PT dismissed from [facility] via wheelchair to PT entrence by Felicia MCRAE. PT has DC packet and personal belongings; PT was transferred into the care of her who is driving private truck. PT assisted from wheelchair to car by RN; O2 continues via NC.
--- NOTE | 2022-08-03 11:47 | NUR ---
1140 - PT dismissed from [facility] via wheelchair to PT entrence by Felicia MCRAE. PT has DC packet and personal belongings; PT was transferred into the care of her who is driving private truck. PT assisted from wheelchair to car by RN; O2 continues via NC.
== END 2022-08-03 11:50 | disposition home or self-care (01) ==
LOC: SDCO 08:07
DX: J90 Pleural effusion, not elsewhere classified (principal); J44.9 Chronic obstructive pulmonary disease, unspecified; Z87.891 Personal history of nicotine dependence; Z79.899 Other long term (current) drug therapy

== ENCOUNTER 2022-08-06 07:11 | Outpatient (CLI) | payer MEDICARE ==
[~2022-08-06] VITALS: Ht 149.9 cm; Wt 41.2 kg
[~2022-08-06 07:11] MED LIST changes: +BETAPACE 120MG120 MG PO
[2022-08-06 07:52] VITALS: BP 105/68; PULSE 69; TEMP 96.9
[2022-08-06 08:50] VITALS: BP 104/62; PULSE 71; TEMP 97
[2022-08-06 09:05] VITALS: BP 97/63; PULSE 90
[2022-08-06 09:20] VITALS: BP 91/50; PULSE 63
--- NOTE | 2022-08-06 09:52 | NUR ---
0850 - Procedure ends. Vitals obtained. Call costa within reach if needed; x1 side rails applied. Rohit is present in room. Procedure site is clean, dry and intact; no drainage on bandaid. O2 continues via NC at 2.5 L. 0905 - Vitals obtained. PT denies pain/nausea; snack and drink provided. Call costa within reach if needed. O2 continues. 0910 - Radiology contacted for CX. 0915 - Chest x-ray obtained. 0920 - Vitals obtained. Monitors discontinued. Patient assisted into bed from a sitting position. Side rails x2. Call costa remains within reach if needed. PT assisted w/ changing into personal clothes by . 0935 - DC instructions and educational material reviewed w/ PT who verbalized understanding the material. Questions answered to PT satisfaction. PT then assisted from bed to wheelchair by THOR and Rohit. PT then dismissed from [facility] via wheelchair to the PT entrence by Felicia MCRAE. PT transferred from wall O2 to portable O2. PT has DC packet and personal belonings, and was transferred into the care of her who is driving private car.
[2022-08-06 15:51] VITALS: BP 104/62; PULSE 63
== END 2022-08-06 09:55 | disposition home or self-care (01) ==
LOC: SDCO 07:11
DX: J90 Pleural effusion, not elsewhere classified (principal); J44.9 Chronic obstructive pulmonary disease, unspecified; Z87.891 Personal history of nicotine dependence; Z79.899 Other long term (current) drug therapy
CPT/HCPCS: 19804

== ENCOUNTER 2022-11-12 13:58 | Observation (INO) | payer MEDICARE ==
[2022-11-12] VITALS (289 sets, daily range): BP systolic 94–140; BP diastolic 61–68; PULSE 72–104; TEMP 97.7–98.5; O2SAT 76–100
[~2022-11-12] VITALS: Ht 149.9 cm; Wt 42.6 kg
[~2022-11-12 13:58] MED LIST changes: +BORTEZOMIB1 MG IJ; +DECADRON 4MG TAB4 MG PO; +INCRUSE EL62.5 MCG/A IH; +TYLENOL 500MG500 MG PO
[2022-11-12 15:19] LABS: HEMOGLOBIN 11.5 g/dl (12.5-16.0); MEAN CELL VOLUME 95 fl (80.0-100.0); MEAN CORPUSCULAR HEMOGLOBIN 32 pg (27-31); MEAN CORPUSCULAR HGB CONC 34 g/dl (33.0-37.0); MEAN PLATELET VOLUME 10.5 fl (7.4-10.4); PLATELET COUNT 307 K/mm3 (130-400); RED BLOOD COUNT 3.57 M/mm3 (4.10-5.30); REDCELL DISTRIBUTION WIDTH-CV 14.6 % (11.5-14.5)
[2022-11-12 15:34] LABS: BILIRUBIN,TOTAL 0.8 mg/dL (0.2-1.2); CALCIUM 9.2 mg/dL (8.4-10.2); CREATININE, serum 0.86 mg/dL (0.57-1.11); POTASSIUM 4.5 mmol/L (3.5-4.5); TOTAL PROTEIN 6.8 gm/dL (6.2-8.1)
[2022-11-12 15:41] LABS: COLLECTION METHOD CLEAN CATCH
[2022-11-12 15:49] LABS: BAND 7 % (0-10); LYMPHOCYTE 9 % (20.0-51.0); NEUTROPHILS 84 % (42.0-75.2); PLATELET ESTIMATE NORMAL (NORMAL)
[2022-11-12 15:53] LABS: TROPONIN-I 0.032 ng/mL (0.00-0.033); TSH w REFLEX 4.873 uIU/mL (0.350-4.940)
[2022-11-12 15:58] LABS: MUCOUS Present (NOT PRESENT); URINE APPEARANCE Hazy (CLEAR/HAZY); URINE BACTERIA Moderate /hpf (NONE SEEN); URINE COLOR Yellow (YELLOW); URINE GLUCOSE Negative (NEGATIVE); URINE KETONE Negative (NEGATIVE); URINE PROTEIN(semi-quant) Negative (NEGATIVE)
[2022-11-12 15:59] LABS: URINE BLOOD TRACE-INTACT (NEGATIVE); URINE NITRATE Negative (NEGATIVE); URINE UROBILINOGEN 0.2 E.U/dL (0.2-1.0)
[2022-11-12 16:20] LABS: ALBUMIN 2.8 gm/dL (3.4-4.8)
--- NOTE | 2022-11-12 18:11 | NUR ---
PT ADMITTED FROM ED VIA WC. PT PIVOT TRANSFERS TO BED W/ 1:1 ASSISTANCE. VSS, PT ON 3L O2 PER NC WHICH IS HER BASELINE USE AT HOME. 20G IV IN PLACE TO L FOREARM. PT DENIES PAIN AT THIS TIME. TWO 1CM IN DIAMETER, ROUND, STAGE 2 PRESSURE ULCERS NOTED TO COCCYX, ONE AT THE TOP OF GLUTEAL CLEFT AND ONE TO THE LEFT OF THE CLEFT. BELOW THE SECOND ULCER IS A ROUND SCABBED AREA THAT APPEARS TO BE A HEALING PRESSURE ULCER. PT EDUCATED ON THE NEED TO BE REPOSITIONED Q2HR AND USE OF BARRIER CREAM. PT IS ABLE TO MOVE IN BED INDEPENDENTLY. PT INSTRUCTED TO USE CALL LIGHT FOR NEEDS, BED ALARM IN PLACE FOR PT SAFETY, PT'S AT BEDSIDE.
[2022-11-13] VITALS (1063 sets, daily range): BP systolic 83–104; BP diastolic 54–70; PULSE 64–90; TEMP 95.4–98.3; O2SAT 57–100
[2022-11-13 05:39] LABS: BASO % 0.1 % (0.0-2.0); GRAN # 9.1 K/mm3 (1.4-6.5); GRAN % 82.7 % (42.2-75.2); HEMOGLOBIN 11.2 g/dl (12.5-16.0); LYMPH # 1.4 K/mm3 (1.2-3.4); LYMPH % 12.2 % (20.0-51.0); MEAN CELL VOLUME 97 fl (80.0-100.0); MEAN CORPUSCULAR HEMOGLOBIN 32 pg (27-31); MEAN CORPUSCULAR HGB CONC 33 g/dl (33.0-37.0); MEAN PLATELET VOLUME 10.6 fl (7.4-10.4); MONO # 0.5 K/mm3 (0.1-0.6); MONO % 4.5 % (1.7-9.3); PLATELET COUNT 329 K/mm3 (130-400); RED BLOOD COUNT 3.48 M/mm3 (4.10-5.30); REDCELL DISTRIBUTION WIDTH-CV 14.6 % (11.5-14.5)
[2022-11-13 05:42] LABS: HEMATOCRIT 33.6 % (37.0-47.0)
[2022-11-13 05:49] LABS: CALCIUM 8.9 mg/dL (8.4-10.2); CREATININE, serum 0.81 mg/dL (0.57-1.11); MAGNESIUM 1.6 mg/dL (1.6-2.6)
--- NOTE | 2022-11-13 07:48 | NUR ---
Report received from THOR Devries; patient currently sitting up in bed; vital signs are within normal limits this morning and patient has no meds or fluids running through her peripheral IV; no other lines or tubes are in place.
[2022-11-13 08:18] LABS: INR 1.1 (0.8-3.0); PROTHROMBIN TIME 12.2 SECONDS (9.7-12.8)
--- NOTE | 2022-11-13 10:42 | NUR ---
Initial visit; Patient thanked Cleaner Window for looking in on her and offering Spiritual Care. Patient declined so Cleaner Window wished her well.
--- NOTE | 2022-11-13 11:30 | NUR ---
Patient had bedside thoracentesis done by radiology this morning, starting at approx 1107 and ending at approx 1120. Ultrasound assisted in the procedure and 1.4 liters was removed from the right lung. Patient tolerated procedure well and vital signs remained within normal limits.
[2022-11-13 11:50] LABS: PLEURAL FLUID RBC 1000 /mm3 (0-0); PLEURAL FLUID WBC 83 /mm3
--- NOTE | 2022-11-13 20:00 | NUR ---
Patient resting quietly in bed watching TV. Denies any pain or discomfort. Continues to receive 3L oxygen via nasal cannula, tolerating well. BPs soft, with SBPs 80-90s; Vianey notified, orders received to hold tonight's sotolol dose. Other vitals within normal limits. Receiving lasix drip to peripheral in left wrist.
[2022-11-13 22:12] LABS: BODY FLUID PH (AMS) 8 (())
[2022-11-14] VITALS (554 sets, daily range): BP systolic 97–107; BP diastolic 66–75; PULSE 73–87; TEMP 97.7–98.6; O2SAT 56–100
[2022-11-14 06:54] LABS: CALCIUM 9.1 mg/dL (8.4-10.2); CREATININE, serum 0.81 mg/dL (0.57-1.11); MAGNESIUM 2.2 mg/dL (1.6-2.6)
--- NOTE | 2022-11-14 09:22 | NUR ---
PAT met with patient and patients Harjinder at bedside to complete intake. Together they live in [facility]. Harjinder has to assist patient will all of her ADL's at home. She has access to a walker at home but has not needed to utilize it. Patient does use 3L of NC oxygen at home that is supplied through [place] [facility]. PCP is Dr. Shah and she see's Dr. Long for her pulmonology needs and requires frequesnt thoracentesis. She utilizes [facility] for prescriptions. She is still receiving HH services through [facility]. She does not have a DPOA-HC established and does not wish to create one at this time. Harjinder asks about obtaining a portable concentrator as the patient quickly goes through her tanks during her chemo treatments. PAT discussed with who is agreeable to this and signed order faxed to [facility]. Clinical updates faxed to [facility]. Discharge plan: Home w/spouse and continued HH through [facility].
--- NOTE | 2022-11-14 09:44 | NUR ---
SET UP WITH NEPHROLOGY OUT PT.
[2022-11-14] MEDS ORDERED: MAG-OX 400400 MG/TAB PO (11:20)
--- NOTE | 2022-11-14 12:54 | NUR ---
PT DISCHARGED INSTRUCTION GIVEN, ALL PAPERS SIGNED. QUESTIONS ANSWERED. PT LEFT WITH ALL BELONGINGS. PT WAS WHEELCHAIRED OUT BY THIS NURSE AND PLACED IN SPOUSE CAR.
--- NOTE | 2022-11-15 16:24 | NUR ---
flat screen worker spoke with [facility] and faxed orders.
[2022-11-23] MEDS ORDERED: DEMADEX 20MG20 M1 PO (15:22)
== END 2022-11-14 12:55 | disposition home or self-care (01) ==
LOC: COL.ER 13:58 → ICU 16:11
PROVIDERS: Emergency Medicine; ADMIT Internal Medicine
DX: J90 Pleural effusion, not elsewhere classified (principal); J96.21 Acute and chronic respiratory failure with hypoxia; E85.9 Amyloidosis, unspecified; N39.0 Urinary tract infection, site not specified; J44.9 Chronic obstructive pulmonary disease, unspecified; Z99.81 Dependence on supplemental oxygen; I48.91 Unspecified atrial fibrillation; I12.9 Hypertensive chronic kidney disease with stage 1 through stage 4 chronic kidney disease, or unspecified chronic kidney disease; N18.9 Chronic kidney disease, unspecified; E83.119 Hemochromatosis, unspecified; Z87.891 Personal history of nicotine dependence; Z79.899 Other long term (current) drug therapy
CPT/HCPCS: G0378; J0696; J1940; J3475